=== PATIENT | male | born 1980 | race African-American/Black ===

== ENCOUNTER 2017-05-27 19:35 | Emergency (ER) | payer MEDICARE ==
[2017-05-27] MEDS ORDERED: RACEPINEPHRINE HCL 2.25% NEB 0.5 ML AMPUL NEB ONE ×2 (19:45→19:46)
[2017-05-27] MEDS ORDERED: LORAZEPAM INJ 2 MG/1 ML VIAL IV ONE ×2 (19:45→20:01)
[2017-05-27] MEDS ORDERED: LORAZEPAM INJ 2 MG/1 ML VIAL ONE (19:46)
[2017-05-27] MEDS ORDERED: FENTANYL CITRATE INJ/PF 100 MCG/2 ML AMPUL IV ONE ×2 (19:50→21:19)
[2017-05-27 19:55] LABS: ABSOLUTE BASOPHILS # (AUTO) 0.1 10^3/uL (0.0-0.2); ABSOLUTE EOSINOPHILS # (AUTO) 1.3 10^3/uL (0.0-0.6); ABSOLUTE LYMPHOCYTES (AUTO) 3.6 10^3/uL (0.5-4.7); ABSOLUTE MONOCYTES (AUTO) 0.8 10^3/uL (0.1-1.4); ABSOLUTE NEUT (AUTO) 4.1 10^3/uL (1.7-8.2); BASOPHILS % (AUTO) 0.7 % (0-2); EOSINOPHILS % (AUTO) 13.3 % (0-6); HEMATOCRIT 37.3 % (37.9-51.0); LYMPHOCYTES % (AUTO) 36.1 % (13-45); MEAN CORPUSCULAR HGB CONC 32.1 g/dL (32.0-36.0); MEAN CORPUSCULAR VOLUME 84 fl (80-97); MONOCYTES % (AUTO) 8.1 % (3-13); PLATELET COUNT 234 10^3/uL (150-450); RED BLOOD COUNT 4.44 10^6/uL (4.35-5.55); RED CELL DISTRIBUTION WIDTH 14.4 % (11.5-14.0); SEGMENTED NEUTROPHILS % (AUTO) 41.8 % (42-78); TOTAL CELLS COUNTED % (AUTO) 100 %; WHITE BLOOD COUNT 9.8 10^3/uL (4.0-10.5)
[2017-05-27 20:01] LABS: ARTERIAL BLOOD H2CO3 1.58 mmol/L (1.05-1.35); ARTERIAL BLOOD HCO3 28.4 mmol/L (20-26); ARTERIAL BLOOD O2 SATURATION 89.1 % (94-98); ARTERIAL BLOOD PCO2 52.4 mmHg (35-45); ARTERIAL BLOOD PH 7.35 (7.35-7.45); ARTERIAL BLOOD PO2 59.2 mmHg (80-100)
[2017-05-27 20:04] LABS: ARTERIAL BLOOD FIO2 8L
[2017-05-27] MEDS ORDERED: NORMAL SALINE 1000 ML 1,000 ML IV PRN (20:04)
[2017-05-27] MEDS ORDERED: NORMAL SALINE 1000 ML 1,000 ML IV ONE (20:04)
[2017-05-27 20:09] LABS: ALANINE AMINOTRANSFERASE 28 U/L (21-72); ALKALINE PHOSPHATASE 49 U/L (38-126); ANION GAP 10 (5-19); ASPARTATE AMINO TRANSFERASE 28 U/L (17-59); BILIRUBIN,DIRECT 0.1 mg/dL (0.0-0.4); BILIRUBIN,TOTAL 0.1 mg/dL (0.2-1.3); BLOOD UREA NITROGEN 18 mg/dL (7-20); CALCIUM 8.4 mg/dL (8.4-10.2); CARBON DIOXIDE 28 mmol/L (22-30); CHLORIDE 104 mmol/L (98-107); GLUCOSE 134 mg/dL (75-110); POTASSIUM 3.8 mmol/L (3.6-5.0); SODIUM 142.1 mmol/L (137-145); TOTAL PROTEIN 6.5 g/dL (6.3-8.2)
[2017-05-27] MEDS ORDERED: METHYLPREDNISOLONE INJ 125 MG/2 ML SDV IV ONE (20:10)
--- NOTE | 2017-05-27 20:18 | RADIOLOGY REPORT (SQ) ---
EXAM DESCRIPTION: CHEST SINGLE VIEW COMPLETED DATE/TIME: 05/27/2017 7:52 pm REASON FOR STUDY: difficulty breathing COMPARISON: None. EXAM PARAMETERS: NUMBER OF VIEWS: One view. TECHNIQUE: Single frontal radiographic view of the chest acquired. RADIATION DOSE: NA LIMITATIONS: None. FINDINGS: LUNGS AND PLEURA: Right-sided pneumothorax, approximately 30%. Left lung clear. MEDIASTINUM AND HILAR STRUCTURES: No masses. Contour normal. HEART AND VASCULAR STRUCTURES: Heart normal in size. Normal vasculature. BONES: Fracture of the right clavicle. HARDWARE: None in the chest. OTHER: No other significant finding. IMPRESSION: RIGHT-SIDED PNEUMOTHORAX. FRACTURE OF THE RIGHT CLAVICLE. COMMENT: Pertinent findings on the imaging study reported as a CRITICAL RESULT to CARMEL MURILLO MD at20:12 on 05/27/2017. The finding had been recognized and a chest tube inserted. Category of Critical Result: Pneumothorax. TECHNICAL DOCUMENTATION: JOB ID: [id number] [employer]- All Rights Reserved Reading location - IP/workstation name: [email or web address]
--- NOTE | 2017-05-27 20:21 | RADIOLOGY REPORT (SQ) ---
EXAM DESCRIPTION: CHEST SINGLE VIEW COMPLETED DATE/TIME: 05/27/2017 8:13 pm REASON FOR STUDY: CHEST TUBE PLACEMENT COMPARISON: 05/27/2017. EXAM PARAMETERS: NUMBER OF VIEWS: One view. TECHNIQUE: Single frontal radiographic view of the chest acquired. RADIATION DOSE: NA LIMITATIONS: None. FINDINGS: LUNGS AND PLEURA: Interval placement of right-sided chest tube with almost complete resolu tion of the pneumothorax. Minimal trace apical pneumothorax. Left lung clear. MEDIASTINUM AND HILAR STRUCTURES: No masses. Contour normal. HEART AND VASCULAR STRUCTURES: Heart normal in size. Normal vasculature. BONES: Fracture right clavicle. HARDWARE: Right-sided chest tube. OTHER: No other significant finding. IMPRESSION: INTERVAL PLACEMENT OF RIGHT-SIDED CHEST TUBE WITH ALMOST COMPLETE RESOLUTION OF THE PNEU MOTHORAX. MINIMAL TRACE APICAL PNEUMOTHORAX REMAINS. TECHNICAL DOCUMENTATION: JOB ID: [id number] [employer]- All Rights Reserved Reading location - IP/workstation name: [email or web address]
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
[2017-05-27 22:29] LABS: APPEARANCE,URINE CLEAR; BILIRUBIN,URINE NEGATIVE (NEGATIVE); COLOR,URINE STRAW; GLUCOSE, URINE NEGATIVE (NEGATIVE); KETONES,URINE NEGATIVE (NEGATIVE); LEUKOCYTE ESTERASE,URINE NEGATIVE (NEGATIVE); NITRITE,URINE NEGATIVE (NEGATIVE); PROTEIN,URINE NEGATIVE (NEGATIVE); URINE SPECIFIC GRAVITY 1.021; UROBILINOGEN,URINE NEGATIVE mg/dL (<2.0)
[2017-05-27 22:42] VITALS: BP 142/89
--- NOTE | 2017-05-28 07:33 | EKG REPORT ---
SEVERITY:- ABNORMAL ECG - SINUS RHYTHM PROBABLE LEFT VENTRICULAR HYPERTROPHY : Confirmed by: Roberto Rod MD 28-May-2017 07:33:12
--- NOTE | 2017-05-29 14:03 | EKG REPORT ---
SEVERITY:- NORMAL ECG - SINUS RHYTHM : Confirmed by: Roberto Rod MD 29-May-2017 14:02:35
== END 2017-05-27 22:50 | disposition short-term general hospital (02) ==
LOC: EDBD 19:35 → ER 19:35
PROC: 0W9900Z Drainage of Right Pleural Cavity with Drainage Device, Open Approach (ICD-10-PCS; principal; 2017-05-27)
DX: J93.9 Pneumothorax, unspecified (principal); F41.0 Panic disorder [episodic paroxysmal anxiety]; J45.901 Unspecified asthma with (acute) exacerbation; S22.41XA Multiple fractures of ribs, right side, initial encounter for closed fracture; S42.021A Displaced fracture of shaft of right clavicle, initial encounter for closed fracture; S27.321A Contusion of lung, unilateral, initial encounter; V28.4XXA Motorcycle driver injured in noncollision transport accident in traffic accident, initial encounter
CPT/HCPCS: 93005 ×2; 96376; 94640; 99291; 96361; 96374; 96375; 36415; 80307; 82803; 85025; 80053; 81001; 71045; 70450; 70486; 71260; 72125; 74177; 93010 ×2; 36600; 32551; J3010; J2930; J2060; J7030; J3490

== ENCOUNTER 2017-08-16 04:32 | Inpatient (IN) | payer MEDICARE, MEDICAID ==
[2017-08-16] MEDS ORDERED: IPRATROPIUM/ALBUTEROL 0.5-2.5 MG/3 ML AMPUL NEB ONE ×2 (04:37→04:38)
[2017-08-16] MEDS ORDERED: METHYLPREDNISOLONE INJ 125 MG/2 ML SDV IV ONE (04:38)
[2017-08-16] MEDS ORDERED: NORMAL SALINE 1000 ML 1,000 ML IV ONE (04:39)
[2017-08-16] MEDS ORDERED: KETAMINE HCL INJ 500 MG/10 ML VIAL IV ONE (04:41)
[2017-08-16] MEDS ORDERED: KETAMINE HCL INJ 500 MG/10 ML VIAL ONE (04:42)
[2017-08-16] MEDS ORDERED: EPINEPHRINE INJ/PF 1 MG/1 ML AMPULE SUBCUT ONE (04:45)
[2017-08-16 04:54] LABS: ABSOLUTE BASOPHILS # (AUTO) 0.1 10^3/uL (0.0-0.2); ABSOLUTE LYMPHOCYTES (AUTO) 3.2 10^3/uL (0.5-4.7); ABSOLUTE MONOCYTES (AUTO) 0.7 10^3/uL (0.1-1.4); ABSOLUTE NEUT (AUTO) 5.7 10^3/uL (1.7-8.2); BASOPHILS % (AUTO) 1.1 % (0-2); EOSINOPHILS % (AUTO) 9.4 % (0-6); HEMATOCRIT 40.1 % (37.9-51.0); HEMOGLOBIN 12.8 g/dL (13.5-17.0); LYMPHOCYTES % (AUTO) 29.5 % (13-45); MEAN CORPUSCULAR HEMOGLOBIN 26.8 pg (27.0-33.4); MEAN CORPUSCULAR HGB CONC 32.1 g/dL (32.0-36.0); MEAN CORPUSCULAR VOLUME 84 fl (80-97); MONOCYTES % (AUTO) 6.8 % (3-13); PLATELET COUNT 353 10^3/uL (150-450); RED BLOOD COUNT 4.79 10^6/uL (4.35-5.55); RED CELL DISTRIBUTION WIDTH 15.9 % (11.5-14.0); SEGMENTED NEUTROPHILS % (AUTO) 53.2 % (42-78); TOTAL CELLS COUNTED % (AUTO) 100 %; WHITE BLOOD COUNT 10.7 10^3/uL (4.0-10.5)
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
--- NOTE | 2017-08-16 05:01 | RADIOLOGY REPORT (SQ) ---
EXAM DESCRIPTION: XR CHEST 1 VIEW COMPLETED DATE/TME: 08/16/2017 04:38 CLINICAL HISTORY: SOB COMPARISON: 05/27/2017 FINDINGS: Single frontal view of the chest. The cardiomediastinal silhouette has normal size and contour. No consolidation, pneumothorax, or pleural effusion. Redemonstrated mid right clavicular fracture. Leads overlie the chest. Upper abdominal soft tissues are unremarkable. IMPRESSION: 1. No acute pulmonary process identified.
[2017-08-16 05:08] LABS: ALANINE AMINOTRANSFERASE 26 U/L (21-72); ALBUMIN 4.5 g/dL (3.5-5.0); ALKALINE PHOSPHATASE 88 U/L (38-126); ANION GAP 15 (5-19); ASPARTATE AMINO TRANSFERASE 26 U/L (17-59); BILIRUBIN,DIRECT 0.3 mg/dL (0.0-0.4); BILIRUBIN,TOTAL 0.3 mg/dL (0.2-1.3); BLOOD UREA NITROGEN 16 mg/dL (7-20); CALCIUM 9.5 mg/dL (8.4-10.2); CARBON DIOXIDE 30 mmol/L (22-30); CHLORIDE 105 mmol/L (98-107); CREATINE KINASE 296 U/L (55-170); GLUCOSE 136 mg/dL (75-110); POTASSIUM 4.1 mmol/L (3.6-5.0); TOTAL PROTEIN 7.7 g/dL (6.3-8.2)
[2017-08-16 05:28] LABS: VENOUS BLOOD BASE EXCESS -1.8 mmol/L; VENOUS BLOOD HCO3 30.8 mmol/L (20-32)
[2017-08-16 05:30] LABS: VENOUS BLOOD PCO2 101.9 mmHg (35-63); VENOUS BLOOD PH 7.1 (7.30-7.42)
[2017-08-16] MEDS ORDERED: ONDANSETRON 4 MG TAB.RAPDIS PO PRN (05:51)
[2017-08-16] MEDS ORDERED: METHYLPREDNISOLONE INJ 125 MG/2 ML SDV IV SCH (06:00)
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
[2017-08-16 07:03] LABS: VENOUS BLOOD HCO3 29.5 mmol/L (20-32); VENOUS BLOOD PCO2 59.9 mmHg (35-63); VENOUS BLOOD PH 7.31 (7.30-7.42)
[2017-08-16] MEDS: IPRATROPIUM/ALBUTEROL 0.5-2.5 MG/3 ML AMPUL NEB SCH ×4 (07:48→19:51)
[2017-08-16] MEDS: MAGNESIUM SULFATE/D5W 1 GM/100 ML RTUPB IV SCH ×2 (09:46→09:47)
--- NOTE | 2017-08-16 10:48 | EKG REPORT ---
SEVERITY:- NORMAL ECG - SINUS RHYTHM : Confirmed by: Desi Hansen MD 16-Aug-2017 10:46:36
[2017-08-16] MEDS ORDERED: METHYLPREDNISOLONE INJ 125 MG/2 ML SDV ONE (11:11)
[2017-08-16] MEDS: ENOXAPARIN SODIUM INJ 40 MG/0.4 ML DISP.SYRIN SUBCUT SCH (11:13)
[2017-08-16] MEDS: LANSOPRAZOLE 30 MG TAB.RAP.DR PO SCH (11:13)
[2017-08-16] MEDS: ACETAMINOPHEN 325 MG TABLET PO PRN ×2 (11:16→15:55)
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
[2017-08-16] MEDS: METHYLPREDNISOLONE INJ 125 MG/2 ML SDV IV SCH (17:30)
[2017-08-16] MEDS: OXYCODONE-ACETAMINOPHEN 5-325 MG TABLET PO PRN ×2 (17:30→23:57)
[2017-08-16] MEDS: OXYCODONE HCL IR 5 MG TABLET PO PRN ×2 (17:32→23:57)
[2017-08-17] MEDS: IPRATROPIUM/ALBUTEROL 0.5-2.5 MG/3 ML AMPUL NEB SCH ×3 (00:21→08:02)
[2017-08-17] MEDS: METHYLPREDNISOLONE INJ 125 MG/2 ML SDV IV SCH (02:41)
[2017-08-17] MEDS: LANSOPRAZOLE 30 MG TAB.RAP.DR PO SCH (05:42)
[2017-08-17 07:58] VITALS: BP 127/74
[2017-08-17] MEDS: OXYCODONE HCL IR 5 MG TABLET PO PRN (08:47)
[2017-08-17] MEDS ORDERED: METHYLPREDNISOLONE INJ 125 MG/2 ML SDV IV SCH (10:00)
[2017-08-17] MEDS: ENOXAPARIN SODIUM INJ 40 MG/0.4 ML DISP.SYRIN SUBCUT SCH (10:47)
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
== END 2017-08-17 12:00 | disposition home or self-care (01) | DRG 202 ==
LOC: ER 04:32 → EH 05:46 → 3N 07:37
PROVIDERS: ADMIT Internal Medicine; ATTEND Internal Medicine
PROC: 5A09457 Assistance with Respiratory Ventilation, 24-96 Consecutive Hours, Continuous Positive Airway Pressure (ICD-10-PCS; principal; 2017-08-16)
DX: J45.21 Mild intermittent asthma with (acute) exacerbation (principal); J96.02 Acute respiratory failure with hypercapnia; J96.01 Acute respiratory failure with hypoxia; E87.2 Acidosis; F41.9 Anxiety disorder, unspecified; Z87.828 Personal history of other (healed) physical injury and trauma; Z87.81 Personal history of (healed) traumatic fracture; Z82.49 Family history of ischemic heart disease and other diseases of the circulatory system
CPT/HCPCS: 36415; 71045; 80053; 82550; 82803; 82962; 84484; 85025; 93005; 93010; 94660; 99291; J1650; J2930; J7620